=== PATIENT | female | born 2000 | race Caucasian/White ===

== ENCOUNTER 2019-08-13 23:27 | Outpatient (CLI) | payer MEDICAID ==
[~2019-08-13] VITALS: Ht 68 cm; Wt 92.1 kg
[2019-08-13 00:55] VITALS: BP 137/88
[2019-08-14 00:10] LABS: BILIRUBIN,URINE NEGATIVE (NEGATIVE); CLARITY,URINE SLIGHTLY CLOUDY; COLOR,URINE YELLOW; GLUCOSE, URINE (UA) NEGATIVE (NEGATIVE); KETONES,URINE NEGATIVE (NEGATIVE); LEUKOCYTE ESTERASE ,URINE 1+ (NEGATIVE); NITRITE,URINE NEGATIVE (NEGATIVE); PH,URINE 6 (5-9); PROTEIN,URINE 1+ (NEGATIVE); UROBILINOGEN,URINE 1 MG/DL (NORMAL)
[2019-08-14 00:20] LABS: BACTERIA,URINE MODERATE /HPF; CALCIUM OXALATE CRYSTALS,UR MODERATE /LPF; RBC,URINE 0-2 /HPF
--- NOTE | 2019-08-14 00:40 | NUR ---
REPORT RECEIVED AND CARES RESUMED BY THIS NURSE. REPORTED THAT PORTER CHRISTIE S presented to unit via from ED AT 2335, accompanied by S/O, with c/o CONTRACTIONS,PAIN. PORTER CHRISTIE S weighed, gowned, voided, and to bed. EFHM and TOCO applied, VS taken. PORTER CHRISTIE S oriented to bed controls, call light, TV, heat, and A/C controls.
--- NOTE | 2019-08-14 00:45 | NUR ---
DR THURSTON NOTIFIED OF UA RESULT. ORDERS RECEIVED FOR ANTIBIOTIC AND D/C TO HOME.
[2019-08-14 00:55] VITALS: BP 137/88
[2019-08-14] MEDS ORDERED: CEPHALEXIN 250 MG (KEFLEX) CAP PO ONE ×2 (01:00→01:10)
[2019-08-14] MEDS ORDERED: CEPH-507 PO (01:04)
[2019-08-14] MEDS ORDERED: FLU QUADRIvalent (5+ YOA) 2019-2020 (AFLURIA) 0.5 ML IM ONE ×2 (01:11→01:15)
--- NOTE | 2019-08-14 01:25 | NUR ---
KEFLEX 500MG PO ADMINISTERED. FLU SHOT ADMINISTERED PER PT REQUEST. DISCHARGE INSTRUCTIONS GIVEN. PT VERBALIZES UNDERSTANDING AND SIGNATURE OBTAINED. PT DENIES ANY QUESTIONS OR CONCERNS. EFM D/C'D AND PT ALLOWED TO DRESS. D/C'D OFF UNIT IN STABLE CONDITION ACCOMPANIED BY S/O.
== END 2019-08-14 01:30 | disposition home or self-care (01) ==
LOC: WSo 23:27 → LDRP 23:28 → WSo 08-14 01:30
PROVIDERS: ATTEND Obstetrics & Gynecology
DX: O62.8 Other abnormalities of forces of labor (principal); Z3A.20 20 weeks gestation of pregnancy
CPT/HCPCS: 81000; 87088; 90471; 99212

== ENCOUNTER 2019-08-18 11:55 | Outpatient (CLI) | payer MEDICAID ==
[~2019-08-18] VITALS: Ht 172.7 cm; Wt 93.7 kg
[~2019-08-18 11:55] MED LIST: CEPH-507 PO
--- NOTE | 2019-08-18 12:00 | NUR ---
PORTER CHRISTIE S presented to unit via amb from home, accompanied by s.o., with c/o CONTRACTIONS. PORTER CHRISTIE S weighed, gowned, voided, and to bed. EFHM and TOCO applied, VS taken. PORTER CHRISTIE S oriented to bed controls, call light, TV, heat, and A/C controls.
[2019-08-18] MEDS ORDERED: PREN1TAB79 PO (12:44)
[2019-08-18 13:07] VITALS: BP 121/81
--- NOTE | 2019-08-18 13:38 | NUR ---
Notified Dr Alcala of pt c/o of contractions every 5 minutes since 1899 last noc,passed mucus plug,and LL quad pain. Reported pt taking keflex for UTI, mild irregular contractions and spacing to occasional contraction with bed rest, baby active, a variable noted ,FHT's 135 and reactive, SVE 1cm, neg amnio swab obtained and neg on urine dipstick. Orders received for discharge and home care instructions.
[2019-08-18 14:00] VITALS: BP 121/81
--- NOTE | 2019-08-18 14:10 | NUR ---
PORTER CHRISTIE demonstrates understanding of discharge instructions and accurately returns instructions upon questioning. Copy of Post-Discharge Instructions and Medication Discharge Instructions given to pt. PORTER CHRISTIE is able to manage continuing needs after discharge. Patients belongings returned to pt. Skin dry and intact; no breakdown noted. Patient discharged from 3320-1 on at 1410. PORTER CHRISTIE left floor ambulatory, accompanied by Sig O. Pt will f/u with Dr Quiroga at previous scheduled appointment 08/21/19. No concerns voiced via pt at this time.
--- NOTE | 2019-08-20 08:34 | Physician Query-Final Dx ---
Clinic Account Progress/Dx Physician Query: Please give diagnosis Please include # weeks gestation Date of Service Aug 18, 2019 at 11:55 CHAPITO SANABRIA Aug 20, 2019 08:34
== END 2019-08-18 14:10 | disposition home or self-care (01) ==
LOC: LDRP 11:55 → WSo 11:55
PROVIDERS: ATTEND Obstetrics & Gynecology
DX: O62.8 Other abnormalities of forces of labor (principal); Z3A.39 39 weeks gestation of pregnancy
CPT/HCPCS: 99214

== ENCOUNTER 2019-08-22 06:36 | Inpatient (IN) | payer MEDICAID ==
[~2019-08-22] VITALS: Ht 172.7 cm; Wt 94.0 kg
[2019-08-22] VITALS (63 sets, daily range): BP systolic 92–141; BP diastolic 51–94
[~2019-08-22 06:36] MED LIST changes: +PREN1TAB79 PO
--- NOTE | 2019-08-22 06:45 | NUR ---
PORTER CHRISTIE S presented to unit via ambulation from home/ED, accompanied by SO & family, for INDUCTION. PORTER CHRISTIE S weighed, gowned, voided, and to bed. EFHM and TOCO applied, VS taken. PROTER CHRISTIE S oriented to bed controls, call light, TV, heat, and A/C controls.
[2019-08-22] MEDS ORDERED: D5 LR IV SOLUTION 1,000 ML IV SCH (06:58)
[2019-08-22] MEDS ORDERED: AMPICILLIN FOR IV USE 2,000 MG in WATER (STERILE) FOR INJECTION 14.8 ML IV SCH (06:58)
--- NOTE | 2019-08-22 07:04 | NUR ---
monitors applied by previous shift.
[2019-08-22 07:07] LABS: BASOPHILS % (AUTO) 0 % (0-10); EOSINOPHILS # (AUTO) 0.2 10^3/uL (0.0-0.3); EOSINOPHILS % (AUTO) 2 % (0-10); HEMATOCRIT 41 % (35-52); HEMOGLOBIN 14.1 G/DL (11.5-16.0); LYMPHOCYTES % (AUTO) 20 % (12-44); MEAN CORPUSCULAR HEMOGLOBIN 31 PG (25-34); MEAN CORPUSCULAR HGB CONC 34 G/DL (32-36); MEAN CORPUSCULAR VOLUME 90 FL (80-99); MEAN PLATELET VOLUME 10.7 FL (7.4-10.4); MONOCYTES # (AUTO) 0.9 X 10^3 (0.0-1.0); MONOCYTES % (AUTO) 9 % (0-12); NEUTROPHILS % (AUTO) 69 % (42-75); PLATELET COUNT 196 10^3/uL (130-400); RED CELL DISTRIBUTION WIDTH 13.4 % (10.0-14.5); WHITE BLOOD COUNT 10.2 10^3/uL (4.3-11.0)
[2019-08-22] MEDS ORDERED: OXYTOCIN/NORMAL SALINE 500 ML IV SCH ×2 (07:58→19:28)
--- NOTE | 2019-08-22 08:17 | History & Physical-OB ---
OB - Chief Complaint & HPI Date/Time Date of Admission: Date of Admission: Aug 22, 2019 at 06:36 Date seen by a Provider: Aug 22, 2019 Time Seen by a Provider: 08:00 Chief Complaint/History OB-Reason for Admission/Chief: Induction of Labor Hx : 1 Hx Para: 0 Expected Date of Delivery: Aug 20, 2019 Gestational Age in Weeks: 40 Gestational Age in Days: 2 Indication for induction: post dates Admission Nurse Assessment Rev: Yes History of Labs A pos Antibody neg RI RPR NR HBsAg NR HIV NR GC neg GBS pos Allergies and Home Medications Allergies Coded Allergies: No Known Drug Allergies (Unverified , 08/18/19) Home Medications Cephalexin 500 Mg Capsule, 500 MG PO QID Prescribed by: SARA ESTES on 08/14/19 0104 Vit W-Ca,Fe,FA(<1 mg) 1 Each Tablet, 1 EACH PO DAILY, (Reported) Patient Home Medication List Home Medication List Reviewed: Yes OB - History Hx of Present Care: Yes Ultrasounds: Normal mid trimester US Obstetrical Complications: None Medical Complications: None Patient Past Medical History n/a Social History/Family History 2nd Hand Smoke Exposure: No Immunizations Date of Influenza Vaccine: Aug 14, 2019 OB - Admission Exam Physical Exam HEENT: NCAT Heart: Rhythm Normal Lungs: Clear Abdomen: Gravid Extremities: Normal Reflexes: Normal Cervical Dilatation: 2cm Effacement: 75% Station: -1 Membranes: Intact Heart Rate: 130's Accelerations: Accelerations Present Decelerations: No Decelerations Short Term Variability: Present Detention Variability: Average (6-25) Contractions on Admission: 6-10 Minutes Apart Intensity: Mild Keller Scoring Tool (Modified) Dilation (cm): 1-2cm (1) Effacement (%): 51-79% (2) Descent/Station: -1,0 (2) Cervix Consistency: Soft (2) Cervix Position: Anterior (2) Keller Score: 8 Labs Laboratory Tests Test 08/22/19 06:50 Range/Units White Blood Count 10.2 4.3-11.0 10^3/uL Red Blood Count 4.56 4.35-5.85 10^6/uL Hemoglobin 14.1 11.5-16.0 G/DL Hematocrit 41 35-52 % Mean Corpuscular Volume 90 80-99 FL Mean Corpuscular Hemoglobin 31 25-34 PG Mean Corpuscular Hemoglobin Concent 34 32-36 G/DL Red Cell Distribution Width 13.4 10.0-14.5 % Platelet Count 196 130-400 10^3/uL Mean Platelet Volume 10.7 H 7.4-10.4 FL Neutrophils (%) (Auto) 69 42-75 % Lymphocytes (%) (Auto) 20 12-44 % Monocytes (%) (Auto) 9 0-12 % Eosinophils (%) (Auto) 2 0-10 % Basophils (%) (Auto) 0 0-10 % Neutrophils # (Auto) 7.0 1.8-7.8 X 10^3 Lymphocytes # (Auto) 2.0 1.0-4.0 X 10^3 Monocytes # (Auto) 0.9 0.0-1.0 X 10^3 Eosinophils # (Auto) 0.2 0.0-0.3 10^3/uL Basophils # (Auto) 0.0 0.0-0.1 10^3/uL OB - Assessment/Plan/Diagnosis Assessment Assessment: induction of labor Admission Dx 19 yo @ 40.2 Post dates GBS pos Admission Status: Inpatient Order (span 2 midnights) Reason for Inpatient Admission: Induction of labor at term Plan Plan: Induction Induction Method: per Pitocin Protocol POPPY THURSTON DO Aug 22, 2019 08:17
[2019-08-22] MEDS ORDERED: SUFENTA 0.6MCG/ML BUPIVA 0.125 100 ML ONE (10:23)
[2019-08-22] MEDS: LACTATED RINGERS 1,000 ML IV SCH ×2 (10:24→11:52)
--- NOTE | 2019-08-22 10:31 | NUR ---
was given update r/t epidural request.
--- NOTE | 2019-08-22 10:40 | NUR ---
anesthesia notified of pt's request for epidural placement.
--- NOTE | 2019-08-22 10:54 | NUR ---
APOORVA Rai and TORRES Onofre here for epidural placement. Procedure explained, consent reviewed and signed by anesthesia. Questions answered to patient's satisfaction. Time out taken to verify correct patient/procedure. 1102- Patient up to side of bed, assisted into sitting position. Betadine prep done x3 and sterile drape applied. 1114- Local done, see anesthesia record. 1127- Test dose given, see anesthesia record for drug and dosage. Epidural catheter secured in place. Epidural placement complete. 1134- Assisted back into bed, monitors adjusted. Epidural dosed, see anesthesia record. Epidural of Sufenta/Bupvicaine @12cc/hr stated per pump. Patient tolerated procedure well.
[2019-08-22] MEDS: EPIDURAL (SUFENTA 0.6MCG/ML BUPIVA 0.125%) 100 ML BAG EPI SCH ×3 (11:34→20:18)
[2019-08-22] MEDS ORDERED: NALOXONE 0.4 MG/ML 1 ML (NARCAN) VIAL IV PRN ×2 (11:45)
[2019-08-22] MEDS ORDERED: METOCLOPRAMIDE INJ 10 MG/2 ML (REGLAN) IV PRN (11:45)
[2019-08-22] MEDS ORDERED: ONDANSETRON 4 MG/2 ML (SDV) Z0FRAN IV PRN (11:45)
[2019-08-22] MEDS ORDERED: diphenhydrAMINE 50 MG/ML INJ (BENADRYL) IV PRN (11:45)
[2019-08-22] MEDS: AMPICILLIN FOR IV USE 1,000 MG in WATER (STERILE) FOR INJECTION 7.4 ML IV SCH ×2 (11:47→16:08)
[2019-08-22] MEDS ORDERED: CATHETER FLUSH 10 ML SYR IV SCH (14:00)
--- NOTE | 2019-08-22 18:28 | NUR ---
was called with KARLA.
[2019-08-22] MEDS ORDERED: LIDOCAINE/EPI 2% 1:200,00 (XYLOCAINE) 10 ML VIAL ONE (18:48)
--- NOTE | 2019-08-22 19:15 | NUR ---
1915-Start of recovery period. FF 2 below umbilicus, light rubra bleeding, no clots. Pericare, gown change, and epidural removed at this time. 0-FF 2 below umbilicus, light rubra bleeding, no clots. Mother holding . 1944-FF 2 below umbilicus, light rubra bleeding, no clots. Mother nursing infant. 1999-FF 2 below umbilicus, light rubra bleeding, no clots. 2014-FF 2 below umbilicus, light rubra bleeding, no clots. 2044-FF 2 below umbilicus, light rubra bleeding, no clots. Pericare performed and gown changed. 2114-FF 2 below umbilicus, light rubra bleeding, no clots. End of recovery period.
[2019-08-22] MEDS ORDERED: WITCH HAZEL(TUCKS) 40 EA JAR TOP PRN (19:30)
[2019-08-22] MEDS ORDERED: BENZOCAINE/MENTHOL (DERMOPLAST) 56 ML CAN TP PRN (19:30)
[2019-08-22] MEDS ORDERED: IBUPROFEN 600 MG (MOTRIN) TAB PO ONE (20:41)
[2019-08-22] MEDS: IBUPROFEN 600 MG (MOTRIN) TAB PO SCH (20:45)
[2019-08-22] MEDS: DOCUSATE SODIUM 100 MG (COLACE) CAP PO SCH (20:46)
--- NOTE | 2019-08-22 21:59 | OB Labor & Delivery Record ---
L&D History Date of Service Date of Service: Aug 22, 2019 History Expected Date of Delivery: Aug 20, 2019 Gestational Age in Weeks: 40 Hx : 1 Hx Para: 0 Complications Events: Meconium Stained Fluid, Routine care Operative Indications (Cesarea: N/A-Vaginal Delivery Intrapartal Events: None L&D Stage1 Stage One Onset of Labor - Date: Aug 22, 2019 Monitors and Tracing Monitor Mode: Internal Heart Rate: 120 Monitor Accelerations: Uniform Monitor Decelerations: Variable Station: +1 Passenger Service Supervisor Variability: Average (6-10) Short Term Variability: Present Presentation: Vertex Vital Signs VS - Last 72 Hours, by Label 08/22/19 08/22/19 08/22/19 08/22/19 07:30 08:00 08:20 08:30 Temp 36.2 Pulse 110 80 82 83 Resp 20 20 18 18 B/P (MAP) 120/72 (88) 127/86 (100) 126/80 (95) 116/77 (90) Pulse Ox 99 O2 Delivery Room Air Room Air Room Air Room Air 08/22/19 08/22/19 08/22/19 08/22/19 08:45 08:55 09:00 09:15 Temp 36.2 Pulse 76 110 78 78 Resp 18 20 18 18 B/P (MAP) 123/71 (88) 120/80 (93) 116/82 (93) Pulse Ox 99 O2 Delivery Room Air Room Air Room Air Room Air 08/22/19 08/22/19 08/22/19 08/22/19 09:30 09:45 10:00 10:15 Pulse 75 83 82 88 Resp 18 18 18 18 B/P (MAP) 127/80 (96) 137/92 (107) 130/87 (101) 130/83 (99) O2 Delivery Room Air Room Air Room Air Room Air 08/22/19 08/22/19 08/22/19 08/22/19 10:30 10:45 11:00 11:05 Pulse 83 83 Resp 18 18 18 20 B/P (MAP) 134/94 (107) 126/83 (97) Pulse Ox 99 100 O2 Delivery Room Air Room Air Room Air Room Air 08/22/19 08/22/19 08/22/19 08/22/19 11:05 11:15 11:20 11:25 Temp 36.5 Pulse 88 83 82 87 Resp 20 18 20 20 B/P (MAP) 135/91 (106) 134/94 (107) 128/83 (98) 128/82 (97) Pulse Ox 100 99 100 100 O2 Delivery Room Air Room Air Room Air Room Air 08/22/19 08/22/19 08/22/19 08/22/19 11:30 11:35 11:37 11:40 Pulse 84 81 77 88 Resp 20 20 18 18 B/P (MAP) 136/94 (108) 136/79 (98) 127/80 (96) 119/73 (88) Pulse Ox 100 100 99 O2 Delivery Room Air Room Air Room Air Room Air 08/22/19 08/22/19 08/22/19 08/22/19 11:45 11:53 11:55 12:00 Pulse 86 62 61 67 Resp 20 18 18 20 B/P (MAP) 111/66 (81) 92/51 (65) 94/53 (67) 109/68 (82) Pulse Ox 100 100 100 94 O2 Delivery Room Air Room Air Room Air Room Air 08/22/19 08/22/19 08/22/19 08/22/19 12:15 12:30 12:45 13:00 Pulse 84 71 76 86 Resp 20 20 20 20 B/P (MAP) 113/73 (86) 105/70 (82) 105/70 (82) 111/77 (88) Pulse Ox 99 98 98 100 O2 Delivery Room Air Room Air Room Air Room Air 08/22/19 08/22/19 08/22/19 08/22/19 13:15 13:30 13:45 14:00 Pulse 75 79 83 85 Resp 20 20 20 20 B/P (MAP) 109/76 (87) 102/70 (81) 107/67 (80) 116/72 (87) Pulse Ox 100 100 100 99 O2 Delivery Room Air Room Air Room Air Room Air 08/22/19 08/22/19 08/22/19 08/22/19 14:15 14:30 14:45 15:00 Temp 36.1 Pulse 83 83 93 85 Resp 20 18 18 18 B/P (MAP) 107/75 (86) 121/81 (94) 123/86 (98) 111/73 (86) Pulse Ox 100 100 99 99 O2 Delivery Room Air Room Air Room Air Room Air 08/22/19 08/22/19 08/22/19 08/22/19 15:15 15:30 15:45 16:00 Pulse 82 82 74 82 Resp 18 18 18 18 B/P (MAP) 109/77 (88) 103/73 (83) 111/73 (86) 113/78 (90) Pulse Ox 98 99 99 99 O2 Delivery Room Air Room Air Room Air Room Air 08/22/19 08/22/19 08/22/19 08/22/19 16:15 16:30 16:45 17:00 Pulse 82 85 88 90 Resp 18 18 18 18 B/P (MAP) 122/80 (94) 118/75 (89) 120/81 (94) 124/82 (96) Pulse Ox 98 100 100 100 O2 Delivery Room Air Room Air Room Air Room Air 08/22/19 08/22/19 08/22/19 08/22/19 17:15 17:30 17:45 17:53 Temp 36.5 36.4 Pulse 91 85 96 Resp 18 18 18 B/P (MAP) 120/76 (91) 110/72 (85) 118/82 (94) Pulse Ox 100 99 99 O2 Delivery Room Air Room Air Room Air 08/22/19 08/22/19 08/22/19 08/22/19 18:00 18:15 18:30 18:45 Pulse 86 91 91 96 Resp 18 18 18 18 B/P (MAP) 131/83 (99) 108/65 (79) 108/65 (79) 130/76 (94) Pulse Ox 100 99 99 100 O2 Delivery Room Air Room Air Room Air Room Air 08/22/19 19:00 Pulse 104 Resp 18 B/P (MAP) 134/73 (93) O2 Delivery Room Air Rupture of Membranes Spontaneous Ruture of Membrane: No Amniotic Membrane Rupture Time: 1205 Amniotic Membrane Fluid Desc.: Meconium Stained Vaginal Bleeding Description: Normal Show Induction/Anesthesia Epidural Cath Placement - Time: 1124 Progress/Notes Patient started on Ampicillin at admission this am at 630 due to GBS + and started on Pitocin augmentation, AROM perform later that morning approx 1135 am. This was after epidural placed. She progressed to complete and +2 station. L&D Stage2 Stage Two Stage II Date: Aug 22, 2019 Monitors and Tracing Monitor Mode: External Heart Rate: 120 Monitor Accelerations: Uniform Monitor Decelerations: Variable Shelter Variability: Average (6-10) Short Term Variability: Present Position: Right Occiput Anterior Presentation: Vertex Cord Descript/Complications Cord Vessel Description: 3 Vessels Delivery Type Delivery Method: Spontaneous Vaginal Anterior Shoulder: Right Episiotomy/Perineal Laceration Laceraction(s)/Extensions: Yes Episiotomy Description: Midline Degree (describe repair) midline episiotomy repaired using 3-0 and 2-0 vicryl suture in usual fashion Condition of Delivery 1 minute Comment: 8 5 minute Comment: 9 Notes Live male weight 7lbs 12 oz Condition of Infant Condition of Infant: Living Exam: No Observed Abnormalities Resuscitation Resuscitation: N/A - Spontaneous Resp L&D Stage3 Pictocin Pitocin Administration mu/min: 10 Pitocin ml/hr: 10 Pitocin Administration Comment: 30 mu wide open at delivery of placenta Placenta Delivery Placenta Delivery: Spontaneous Delivery Summary Summary Estimated blood loss (mL): 350 Attending at delivery: Niki Thurston DO Condition of Delivery Examined: Cervix Examined, Uterus Explored Post Hemorrhage: No Condition of Mother stable Condition of (s) stable NIKI THURSTON DO Aug 22, 2019 21:59
[2019-08-22] MEDS ORDERED: HYDROcodone/APAP 5 MG/325 MG (LORTAB) TAB PO PRN (22:00)
--- NOTE | 2019-08-22 22:00 | NUR ---
Left leg still too numb for pt. to ambulate with standby assist, but able to bear weight on right leg. Pt. assisted to wheelchair to go to bathroom. Positive void noted. Will transfer to stephen, 312 soon.
--- NOTE | 2019-08-22 22:20 | NUR ---
Pt. transferred to room 312 via wheelchair, accompanied by S.O. and . Pt. oriented to room, call light, and thermostat. folder given and explained. Fresh ice water provided. Pt. instructed to call RN when ready to get up to bathroom again. No other questions or concerns voiced at this time.
[2019-08-23 00:40] VITALS: BP 117/82
--- NOTE | 2019-08-23 00:50 | NUR ---
Pt. able to ambulate to bathroom with standby assist without difficulty. Positive void noted.
[2019-08-23] MEDS: IBUPROFEN 600 MG (MOTRIN) TAB PO SCH ×4 (03:27→21:37)
[2019-08-23 03:30] VITALS: BP 104/61
[2019-08-23 06:32] LABS: BASOPHILS % (AUTO) 0 % (0-10); EOSINOPHILS # (AUTO) 0.1 10^3/uL (0.0-0.3); EOSINOPHILS % (AUTO) 1 % (0-10); HEMATOCRIT 34 % (35-52); HEMOGLOBIN 11.5 G/DL (11.5-16.0); LYMPHOCYTES # (AUTO) 1.6 X 10^3 (1.0-4.0); LYMPHOCYTES % (AUTO) 10 % (12-44); MEAN CORPUSCULAR HEMOGLOBIN 31 PG (25-34); MEAN CORPUSCULAR HGB CONC 34 G/DL (32-36); MEAN CORPUSCULAR VOLUME 92 FL (80-99); MEAN PLATELET VOLUME 10.4 FL (7.4-10.4); MONOCYTES # (AUTO) 1.8 X 10^3 (0.0-1.0); MONOCYTES % (AUTO) 11 % (0-12); NEUTROPHILS # (AUTO) 12.3 X 10^3 (1.8-7.8); NEUTROPHILS % (AUTO) 78 % (42-75); PLATELET COUNT 175 10^3/uL (130-400); RED CELL DISTRIBUTION WIDTH 13.6 % (10.0-14.5); WHITE BLOOD COUNT 15.8 10^3/uL (4.3-11.0)
--- NOTE | 2019-08-23 07:33 | Anesthesia-Regional Post-Op ---
Regional Patient Condition Mental Status: Alert, Oriented x3 Circulation: Same as Pre-Op Headache: Absent Sensation: Full Recovery Motor Block: Absent Post Op Complications Complications None Follow Up Care/Instructions Patient Instructions None needed. Anesthesia/Patient Condition Patient is doing well, no complaints, stable vital signs, no apparent adverse anesthesia problems. No complications reported per nursing. MINH ANDRADE CRNA Aug 23, 2019 07:33
--- NOTE | 2019-08-23 08:26 | Postpartum Progress Note ---
Note Note Day # 1 Subjective: Patient is without complaints. Ambulating, voiding. Tolerating a regular diet without nausea or vomiting. Normal lochia. Pain is well controlled with oral pain medications. Objective: Physical Exam: General - Alert and oriented, no apparent distress Abdomen - Soft, appropriately tender to palpation, non-distended, fundus firm at umbilicus Extremities - no edema, negative Danette's bilaterally Assessment: PPD 1 NVD Plan: Routine care. Encourage breast feeding. Encourage ambulation. Ferrous sulfate supplementation. Plan for discharge tomorrow Vitals - Labs Vital Signs - I&O Vital Signs Date Time Temp Pulse Resp B/P (MAP) Pulse Ox O2 Delivery O2 Flow Rate FiO2 08/23/19 03:30 36.7 76 16 104/61 (75) 98 Room Air 08/23/19 00:40 36.8 92 18 117/82 (94) 98 Room Air 08/22/19 21:30 96 18 124/73 (90) Room Air 08/22/19 21:15 90 18 118/75 (89) Room Air 08/22/19 21:00 105 18 122/81 (95) Room Air 08/22/19 20:44 93 18 118/81 (93) Room Air 08/22/19 20:30 87 18 117/82 (94) Room Air 08/22/19 20:00 93 18 130/83 (99) Room Air 08/22/19 19:44 96 18 129/75 (93) Room Air 08/22/19 19:29 105 18 141/74 (96) Room Air 08/22/19 19:22 37.0 97 18 134/72 (92) Room Air 08/22/19 19:14 106 18 130/74 (92) Room Air 08/22/19 19:00 104 18 134/73 (93) Room Air 08/22/19 18:45 96 18 130/76 (94) 100 Room Air 08/22/19 18:30 91 18 108/65 (79) 99 Room Air 08/22/19 18:15 91 18 108/65 (79) 99 Room Air 08/22/19 18:00 86 18 131/83 (99) 100 Room Air 08/22/19 17:53 36.4 08/22/19 17:45 96 18 118/82 (94) 99 Room Air 08/22/19 17:30 85 18 110/72 (85) 99 Room Air 08/22/19 17:15 36.5 91 18 120/76 (91) 100 Room Air 08/22/19 17:00 90 18 124/82 (96) 100 Room Air 08/22/19 16:45 88 18 120/81 (94) 100 Room Air 08/22/19 16:30 85 18 118/75 (89) 100 Room Air 08/22/19 16:15 82 18 122/80 (94) 98 Room Air 08/22/19 16:00 82 18 113/78 (90) 99 Room Air 08/22/19 15:45 74 18 111/73 (86) 99 Room Air 08/22/19 15:30 82 18 103/73 (83) 99 Room Air 08/22/19 15:15 82 18 109/77 (88) 98 Room Air 08/22/19 15:00 85 18 111/73 (86) 99 Room Air 08/22/19 14:45 36.1 93 18 123/86 (98) 99 Room Air 08/22/19 14:30 83 18 121/81 (94) 100 Room Air 08/22/19 14:15 83 20 107/75 (86) 100 Room Air 08/22/19 14:00 85 20 116/72 (87) 99 Room Air 08/22/19 13:45 83 20 107/67 (80) 100 Room Air 08/22/19 13:30 79 20 102/70 (81) 100 Room Air 08/22/19 13:15 75 20 109/76 (87) 100 Room Air 08/22/19 13:00 86 20 111/77 (88) 100 Room Air 08/22/19 12:45 76 20 105/70 (82) 98 Room Air 08/22/19 12:30 71 20 105/70 (82) 98 Room Air 08/22/19 12:15 84 20 113/73 (86) 99 Room Air 08/22/19 12:00 67 20 109/68 (82) 94 Room Air 08/22/19 11:55 61 18 94/53 (67) 100 Room Air 08/22/19 11:53 62 18 92/51 (65) 100 Room Air 08/22/19 11:45 86 20 111/66 (81) 100 Room Air 08/22/19 11:40 88 18 119/73 (88) 99 Room Air 08/22/19 11:37 77 18 127/80 (96) Room Air 08/22/19 11:35 81 20 136/79 (98) 100 Room Air 08/22/19 11:30 84 20 136/94 (108) 100 Room Air 08/22/19 11:25 36.5 87 20 128/82 (97) 100 Room Air 08/22/19 11:20 82 20 128/83 (98) 100 Room Air 08/22/19 11:15 83 18 134/94 (107) 99 Room Air 08/22/19 11:05 88 20 135/91 (106) 100 Room Air 08/22/19 11:05 83 20 126/83 (97) 100 Room Air 08/22/19 11:00 83 18 134/94 (107) 99 Room Air 08/22/19 10:45 18 Room Air 08/22/19 10:30 18 Room Air 08/22/19 10:15 88 18 130/83 (99) Room Air 08/22/19 10:00 82 18 130/87 (101) Room Air 08/22/19 09:45 83 18 137/92 (107) Room Air 08/22/19 09:30 75 18 127/80 (96) Room Air 08/22/19 09:15 78 18 116/82 (93) Room Air 08/22/19 09:00 78 18 120/80 (93) Room Air 08/22/19 08:55 36.2 110 20 99 Room Air 08/22/19 08:45 76 18 123/71 (88) Room Air 08/22/19 08:30 83 18 116/77 (90) Room Air I & O 08/23/19 07:00 Intake Total 500 ml Balance 500 ml Labs Laboratory Tests 08/23/19 06:20: White Blood Count 15.8H, Red Blood Count 3.74L, Hemoglobin 11.5, Hematocrit 34L, Mean Corpuscular Volume 92, Mean Corpuscular Hemoglobin 31, Mean Corpuscular Hemoglobin Concent 34, Red Cell Distribution Width 13.6, Platelet Count 175, Mean Platelet Volume 10.4, Neutrophils (%) (Auto) 78H, Lymphocytes (%) (Auto) 10L, Monocytes (%) (Auto) 11, Eosinophils (%) (Auto) 1, Basophils (%) (Auto) 0, Neutrophils # (Auto) 12.3H, Lymphocytes # (Auto) 1.6, Monocytes # (Auto) 1.8H, Eosinophils # (Auto) 0.1, Basophils # (Auto) 0.0 POPPY THURSTON DO Aug 23, 2019 8:26 am
[2019-08-23 09:15] VITALS: BP 116/78
[2019-08-23] MEDS: DOCUSATE SODIUM 100 MG (COLACE) CAP PO SCH ×2 (09:19→21:37)
[2019-08-23] MEDS: PRENATAL VITAMIN 1 EA TAB PO SCH (09:19)
[2019-08-23 12:45] VITALS: BP 124/81
[2019-08-23 15:45] VITALS: BP 133/91
--- NOTE | 2019-08-23 15:45 | NUR ---
Pt concerned with episiotomy - examined WNL. Reassured patient.
[2019-08-23] MEDS ORDERED: BISACODYL 5 MG (DULCOLAX) TABLET PO PRN (16:45)
--- NOTE | 2019-08-23 19:00 | NUR ---
Pt tearful. supportive, pt reassured.
[2019-08-23 21:35] VITALS: BP 97/63
[2019-08-24 03:35] VITALS: BP 99/62
[2019-08-24] MEDS: IBUPROFEN 600 MG (MOTRIN) TAB PO SCH ×2 (03:38→09:52)
[2019-08-24] MEDS ORDERED: ACHD5005 PO (08:14)
[2019-08-24] MEDS ORDERED: DOCU100C37 PO (08:14)
[2019-08-24] MEDS ORDERED: Benzocaine/Menthol TP (08:14)
[2019-08-24] MEDS ORDERED: IBUP-844 PO (08:14)
--- NOTE | 2019-08-24 08:15 | NUR ---
DR. THURSTON IN TO SEE PT. PLAN FOR DISCHARGE.
--- NOTE | 2019-08-24 08:15 | Discharge Inst-Women's Service ---
Discharge Inst-Women's Serv Depart Medication/Instructions New, Converted or Re-Newed RX: RX on Chart Final Diagnosis PPD 2 NVD Problems Reviewed?: Yes Consults/Follow Up Additional Follow Up: Yes Orders/Referrals Dr. Thurston in 6 weeks Activity Activity: Activity as Tolerated Driving Instructions: No Driving for 1 Week NO SMOKING: NO SMOKING Nothing Inside Vagina: No Douching, No [place], No Tampons Diet Discharge Diet: No Restrictions Symptoms to Report to : Bleeding Excessive, Pain Increased, Fever Over 101 Degrees F, Vaginal Bleeding Increase, Questions/Concerns For Any Problems or Questions: Contact Your Physician POPPY THURSTON DO Aug 24, 2019 08:15
--- NOTE | 2019-08-24 08:33 | Postpartum Progress Note ---
Note Note Day # 2 Subjective: Patient is without complaints. Ambulating, voiding. Tolerating a regular diet without nausea or vomiting. Normal lochia. Pain is well controlled with oral pain medications. Objective: Physical Exam: General - Alert and oriented, no apparent distress Abdomen - Soft, appropriately tender to palpation, non-distended, fundus firm at umbilicus Extremities - no edema, negative Danette's bilaterally Assessment: PPD 1 NVD Plan: Routine care. Encourage breast feeding. Encourage ambulation. Ferrous sulfate supplementation. Plan for discharge today Vitals - Labs Vital Signs - I&O Vital Signs Date Time Temp Pulse Resp B/P (MAP) Pulse Ox O2 Delivery O2 Flow Rate FiO2 08/24/19 03:35 36.7 63 16 99/62 (74) 98 Room Air 08/23/19 21:35 36.5 91 16 97/63 (74) 97 Room Air 08/23/19 15:45 37.4 84 16 133/91 (105) 96 Room Air 08/23/19 12:45 36.9 77 16 124/81 (95) 95 08/23/19 09:15 36.9 89 16 116/78 (91) 97 Room Air POPPY THURSTON DO Aug 24, 2019 08:33
[2019-08-24 09:00] VITALS: BP 115/77
--- NOTE | 2019-08-24 09:00 | NUR ---
A.M. ASSESSMENT COMPLETED. VSS. PLANNING TO GO HOME TODAY.
[2019-08-24] MEDS: DOCUSATE SODIUM 100 MG (COLACE) CAP PO SCH (09:52)
[2019-08-24] MEDS: PRENATAL VITAMIN 1 EA TAB PO SCH (09:55)
--- NOTE | 2019-08-24 10:30 | NUR ---
CARING FOR INFANT IN ROOM. GOOD INTERACTION NOTED. WELL.
--- NOTE | 2019-08-24 11:55 | NUR ---
DISCHARGE INSTRUCTIONS REVIEWED WITH COPY TO PT. STATES UNDERSTANDING OF ALL INSTRUCTIONS AND NEED TO F/U SCHEDULED AND NEEDED.
[2019-08-24 14:25] VITALS: BP 115/77
--- NOTE | 2019-08-24 14:25 | NUR ---
DISMISSED AMB FROM [facility] WITH IN STABLE CONDITION TO [facility] BY MANSOOR JACKSON.
== END 2019-08-24 14:25 | disposition home or self-care (01) | DRG 807 ==
LOC: LDRP 06:36
PROVIDERS: ADMIT Obstetrics & Gynecology; ATTEND Obstetrics & Gynecology
PROC: 10E0XZZ Delivery of Products of Conception, External Approach (ICD-10-PCS; principal; 2019-08-22)
PROC: 0W8NXZZ Division of Female Perineum, External Approach (ICD-10-PCS; 2019-08-22)
PROC: 3E033VJ Introduction of Other Hormone into Peripheral Vein, Percutaneous Approach (ICD-10-PCS; 2019-08-22)
DX: O48.0 Post-term pregnancy (principal); O99.824 Streptococcus B carrier state complicating childbirth; O77.0 Labor and delivery complicated by meconium in amniotic fluid; Z3A.40 40 weeks gestation of pregnancy; Z37.0 Single live birth; Z87.891 Personal history of nicotine dependence
CPT/HCPCS: 36415; 85025; 86850; 86900; 86901

== ENCOUNTER 2021-06-11 15:07 | Day surgery (SDC) | payer BC, MEDICAID ==
[~2021-06-11] VITALS: Ht 172 cm; Wt 72.0 kg
[~2021-06-11 15:07] MED LIST changes: +ACHD5005 PO; +Benzocaine/Menthol TP; +DOCU100C37 PO; +IBUP-844 PO
[2021-06-11] MEDS ORDERED: LACTATED RINGERS 1,000 ML IV SCH (15:45)
[2021-06-11] MEDS ORDERED: ONDANSETRON 4 MG/2 ML (SDV) Z0FRAN IVP ONE (15:45)
[2021-06-11] MEDS ORDERED: morphine INJ 10 MG/ML 1ML (SYR OR VIAL) IVP ONE ×2 (15:45→19:15)
[2021-06-11 15:56] LABS: ALBUMIN 4.5 GM/DL (3.2-4.5); POTASSIUM 3.7 MMOL/L (3.6-5.0)
[2021-06-11 15:58] LABS: CALCIUM 9.3 MG/DL (8.5-10.1)
[2021-06-11 15:59] LABS: TOTAL PROTEIN 7.7 GM/DL (6.4-8.2)
--- NOTE | 2021-06-11 15:59 | ED Abdominal Pain ---
General Chief Complaint: Abdominal/GI Problems Stated Complaint: POSS APENDICITIS - FROM [facility] Nursing Triage Note: Pt here with right side abdominal pain; onset this morning upon waking. Went to [facility] but they sent here here. Denies vomiting; last oral intake around noon. Source of Information: Patient Exam Limitations: No Limitations NPO Since: 1200 History of Present Illness Date Seen by Provider: Jun 11, 2021 Time Seen by Provider: 15:25 Initial Comments 20-year-old female otherwise healthy coming in due to right lower quadrant pain that started insidiously this morning when she woke up. Pain has been increasing, is now sharp in her right lower quadrant and stays there. Associated nausea but no vomiting. Ate something at noon which felt okay. Had a bowel movement this morning with no change. No fever that she knows of. She is never had pain like this before. LMP was 4 days ago. Nothing seems to make the pain better. She has never had abdominal surgery before. Allergies and Home Medications Allergies Coded Allergies: No Known Drug Allergies (Unverified , 08/18/19) Home Medications Cephalexin 500 Mg Capsule, 500 MG PO QID Prescribed by: SARA ESTES on 08/14/19103 Docusate Sodium 100 Mg Capsule, 100 MG PO BID PRN for CONSTIPATION-1ST LINE Prescribed by: POPPY THURSTON on 08/24/19813 Hydrocodone Bit/Acetaminophen 1 Tab Tab, 1 TAB PO Q4H PRN for PAIN-MODERATE Prescribed by: POPPY THURSTON on 08/24/19813 Ibuprofen 600 Mg Tablet, 600 MG PO Q6HR Prescribed by: POPPY THURSTON on 08/24/19813 Vit W-Ca,Fe,FA(<1 mg) 1 Each Tablet, 1 EACH PO DAILY, (Reported) [Benzocaine/Menthol] 56 ML AEROSOL, 56 ML TP UD PRN for PAIN- SEE INSTRUCTIONS EXTERNAL USE ONLY Prescribed by: POPPY THURSTON on 08/24/19813 Patient Home Medication List Home Medication List Reviewed: Yes Review of Systems Review of Systems Constitutional: No fever EENTM: No Blurred Vision Respiratory: Denies Cough, Denies Shortness of Air Cardiovascular: Denies Chest Pain Gastrointestinal: Abdominal Pain, Nausea Genitourinary: Denies Frequency Musculoskeletal: No back pain Skin: No rash Psychiatric/Neurological: Denies Anxiety, Denies Depressed Endocrine: No Symptoms Reported Hematologic/Lymphatic: No Symptoms Reported All Other Systems Reviewed Negative Unless Noted: Yes Past Byapdsm-Atovxd-Opoqdz Hx Patient Social History Tobacco Use?: Yes Tobacco type used: Cigarettes Smoking Status: Current Everyday Smoker Substance use?: No Alcohol Use?: No Pt feels they are or have been: No Seasonal Allergies Seasonal Allergies: No Past Medical History Surgeries: Yes Respiratory: No Cardiac: No Neurological: No Last Menstrual Period: Jun 07, 2021 Genitourinary: No Gastrointestinal: No Musculoskeletal: No Endocrine: No HEENT: No Cancer: No Psychosocial: No Integumentary: No Blood Disorders: Yes (ANEMIA) Family Medical History Patient reports no known family medical history. Physical Exam Vital Signs Vital Signs - First Documented 06/11/21 15:25 Temp 37.4 Pulse 88 Resp 18 B/P (MAP) 114/79 (91) Pulse Ox 100 O2 Delivery Room Air Capillary Refill : Less Than 3 Seconds Height/Weight/BMI Height: '" Weight: lbs. oz. kg; 24.00 BMI Method: General Appearance: WD/WN, no apparent distress HEENT: PERRL/EOMI, normal ENT inspection, pharynx normal Neck: non-tender, full range of motion, supple Respiratory: chest non-tender, lungs clear, normal breath sounds, no respiratory distress Cardiovascular: regular rate, rhythm, no murmur Gastrointestinal: normal bowel sounds, soft; No distended, No guarding, No rebound; tenderness Extremities: normal range of motion, non-tender, normal inspection, no pedal edema, no calf tenderness Back: normal inspection Neurologic/Psychiatric: no motor/sensory deficits, alert, normal mood/affect Skin: normal color, warm/dry Lymphatic: no adenopathy Progress/Results/Core Measures Results/Orders Lab Results Laboratory Tests Test 06/11/21 15:37 06/11/21 15:54 Range/Units White Blood Count 16.1 H 4.3-11.0 10^3/uL Red Blood Count 4.53 3.80-5.11 10^6/uL Hemoglobin 12.1 11.5-16.0 g/dL Hematocrit 39 35-52 % Mean Corpuscular Volume 85 80-99 fL Mean Corpuscular Hemoglobin 27 25-34 pg Mean Corpuscular Hemoglobin Concent 31 L 32-36 g/dL Red Cell Distribution Width 14.1 10.0-14.5 % Platelet Count 369 130-400 10^3/uL Mean Platelet Volume 10.3 9.0-12.2 fL Immature Granulocyte % (Auto) 2 % Neutrophils (%) (Auto) 82 H 42-75 % Lymphocytes (%) (Auto) 9 L 12-44 % Monocytes (%) (Auto) 7 0-12 % Eosinophils (%) (Auto) 0 0-10 % Basophils (%) (Auto) 0 0-10 % Neutrophils # (Auto) 13.2 H 1.8-7.8 10^3/uL Lymphocytes # (Auto) 1.4 1.0-4.0 10^3/uL Monocytes # (Auto) 1.1 H 0.0-1.0 10^3/uL Eosinophils # (Auto) 0.1 0.0-0.3 10^3/uL Basophils # (Auto) 0.1 0.0-0.1 10^3/uL Immature Granulocyte # (Auto) 0.3 H 0.0-0.1 10^3/uL Neutrophils % (Manual) 83 % Lymphocytes % (Manual) 12 % Monocytes % (Manual) 4 % Eosinophils % (Manual) 1 % Basophils % (Manual) 0 % Band Neutrophils 0 % Blood Morphology Comment NORMAL Sodium Level 143 135-145 MMOL/L Potassium Level 3.7 3.6-5.0 MMOL/L Chloride Level 107 98-107 MMOL/L Carbon Dioxide Level 25 21-32 MMOL/L Anion Gap 11 5-14 MMOL/L Blood Urea Nitrogen 10 7-18 MG/DL Creatinine 0.83 0.60-1.30 MG/DL Estimat Glomerular Filtration Rate 87 BUN/Creatinine Ratio 12 Glucose Level 84 70-105 MG/DL Calcium Level 9.3 8.5-10.1 MG/DL Corrected Calcium 8.9 8.5-10.1 MG/DL Total Bilirubin 0.7 0.1-1.0 MG/DL Aspartate Amino Transf (AST/SGOT) 24 5-34 U/L Alanine Aminotransferase (ALT/SGPT) 22 0-55 U/L Alkaline Phosphatase 48 40-136 U/L Total Protein 7.7 6.4-8.2 GM/DL Albumin 4.5 3.2-4.5 GM/DL Lipase 16 8-78 U/L Urine Color YELLOW Urine Clarity CLEAR Urine pH 6.5 5-9 Urine Specific [place] 1.020 1.016-1.022 Urine Protein NEGATIVE NEGATIVE Urine Glucose (UA) NEGATIVE NEGATIVE Urine Ketones NEGATIVE NEGATIVE Urine Nitrite NEGATIVE NEGATIVE Urine Bilirubin NEGATIVE NEGATIVE Urine Urobilinogen 1.0 < = 1.0 MG/DL Urine Leukocyte Esterase NEGATIVE NEGATIVE Urine RBC (Auto) NEGATIVE NEGATIVE Urine RBC NONE /HPF Urine WBC RARE /HPF Urine Squamous Epithelial Cells 2-5 /HPF Urine Crystals NONE /LPF Urine Bacteria TRACE /HPF Urine Casts NONE /LPF Urine Mucus SMALL H /LPF Urine Culture Indicated NO My Orders Orders - BELEN DE SANTIAGO MD Morphine Injection (Morphine Injection (06/11/21 15:45) Comprehensive Metabolic Panel (06/11/21 15:31) Lipase (06/11/21 15:31) Ua Culture If Indicated (06/11/21 15:31) Urine Bedside (06/11/21 15:31) Ed Iv/Invasive Line Start (06/11/21 15:31) Cbc With Automated Diff (06/11/21 15:31) Ct Abd/Pelv W (Appendicitis) (06/11/21 15:31) Ondansetron Injection (Zofran Injectio (06/11/21 15:45) Lactated Ringers (Lr 1000 Ml Iv Solution (06/11/21 15:45) Manual Differential (06/11/21 15:37) Iohexol Injection (Omnipaque 350 Mg/Ml 1 (06/11/21 16:15) Received Contrast (Hold Metformin- Contr (06/11/21 16:15) Ns (Ivpb) (Sodium Chloride 0.9% Ivpb Bag (06/11/21 16:15) Morphine Injection (Morphine Injection (06/11/21 17:15) Medications Given in ED Current Medications Medications Dose Ordered Sig/Devaughn Route Start Time Stop Time Status Last Admin Dose Admin Iohexol 100 ml ONCE ONCE IV 06/11/21 16:15 06/11/21 16:16 DC 06/11/21 16:44 80 ML Morphine Sulfate 4 mg ONCE ONCE IVP 06/11/21 15:45 06/11/21 15:46 DC 06/11/21 16:11 4 MG Ondansetron HCl 4 mg ONCE ONCE IVP 06/11/21 15:45 06/11/21 15:46 DC 06/11/21 16:09 4 MG Sodium Chloride 100 ml ONCE ONCE IV 06/11/21 16:15 06/11/21 16:16 DC 06/11/21 16:45 80 ML Vital Signs/I&O 06/11/21 15:25 Temp 37.4 Pulse 88 Resp 18 B/P (MAP) 114/79 (91) Pulse Ox 100 O2 Delivery Room Air Blood Pressure Mean: 91 Progress Progress Note : Progress Note 20-year-old female with above history coming in due to right lower quadrant abdominal pain. ABCs intact and vitals were stable on presentation. Physical exam with right lower quadrant tenderness but no signs of peritonitis. Differential includes appendicitis versus ectopic versus less likely PID versus some other etiology. An IV was placed and she was given morphine for pain control, Zofran for nausea, and a bolus of IV fluids while awaiting labs and test. CT scan of the abdomen and pelvis will be ordered. CT concerning for appendicitis. I called Dr. Armas the surgeon on-call who will be taking her to the operating theater and admitting the patient to their service for further evaluation and management. She did receive 2 doses of IV morphine after repeat reassessment for pain control. Diagnostic Imaging Diagonstic Imaging: CT Plain Films/CT/US/NM/MRI: abdomen Comments [facility], [place] NAME: PORTER CHRISTIE [facility] REC#: [id number] PT STATUS: REG ER : 2000 PHYSICIAN: BELEN DE SANTIAGO MD ADMIT DATE: 06/11/21/ER Signed Date of Exam:06/11/21 CT ABD/PELV W (APPENDICITIS) EXAMINATION: CT abdomen and pelvis with intravenous contrast. TECHNIQUE: Multiple contiguous axial images were obtained through the abdomen and pelvis after the uneventful administration of intravenous contrast. All CT scans use one or more of the following dose optimizing techniques: automated exposure control, MA and/or KvP adjustment based on patient size and exam type or iterative reconstruction. HISTORY: RLQ pain COMPARISON: None available. FINDINGS: Lung bases: The lung bases are clear. Solid organs: There is diffuse periportal edema. Liver is otherwise unremarkable. The portal vein is patent. The gallbladder is normal. There is no biliary ductal dilation. Pancreas is normal. There are multiple calcified granulomas within the spleen. Adrenal glands are normal. The kidneys are normal without hydronephrosis. Bowel: The stomach and small bowel are normal without obstruction. There is dilatation of a fluid-filled appendix measuring up to 0.8 cm with mild inflammatory stranding. Peritoneum: There is no intraperitoneal free fluid or free air. No suspicious lymphadenopathy. Vasculature: Normal without aneurysm. Musculoskeletal: No suspicious osseous lesion or compression fracture. Pelvis: The uterus and adnexa are normal. The urinary bladder is normal. IMPRESSION: 1. Findings suggestive of acute appendicitis without evidence of abscess or free air. 2. Mild periportal edema is nonspecific. Dictated by: Dictated on workstation # [id number] Dict: 06/11/211649 Trans: 06/11/211653 [facility] [id number] Interpreted by: COSME ALAS DO Electronically signed by: COSME ALAS DO 06/11/211653 Departure Impression Primary Impression: Acute appendicitis Qualified Codes: K35.30 - Acute appendicitis with localized peritonitis, without perforation or gangrene Disposition: ADMITTED INPATIENT Condition: Stable Admissions Decision to Admit Reason: Admit from ER (General) Decision to Admit/Date: Jun 11, 2021 Time/Decision to Admit Time: 17:30 Departure-Patient Inst. Referrals: NO,LOCAL PHYSICIAN (PCP/Family) Primary Care Physician BELEN DE SANTIAGO MD Jun 11, 2021 15:59
[2021-06-11 16:00] LABS: BILIRUBIN,TOTAL 0.7 MG/DL (0.1-1.0)
[2021-06-11 16:01] LABS: BILIRUBIN,URINE NEGATIVE (NEGATIVE); CLARITY,URINE CLEAR; COLOR,URINE YELLOW; GLUCOSE, URINE (UA) NEGATIVE (NEGATIVE); KETONES,URINE NEGATIVE (NEGATIVE); LEUKOCYTE ESTERASE ,URINE NEGATIVE (NEGATIVE); NITRITE,URINE NEGATIVE (NEGATIVE); PH,URINE 6.5 (5-9); PROTEIN,URINE NEGATIVE (NEGATIVE)
[2021-06-11 16:02] LABS: CREATININE SERUM 0.83 MG/DL (0.60-1.30)
[2021-06-11 16:05] LABS: BASOPHILS # (AUTO) 0.1 10^3/uL (0.0-0.1); BASOPHILS % (AUTO) 0 % (0-10); EOSINOPHILS # (AUTO) 0.1 10^3/uL (0.0-0.3); EOSINOPHILS % (AUTO) 0 % (0-10); HEMATOCRIT 39 % (35-52); HEMOGLOBIN 12.1 g/dL (11.5-16.0); LYMPHOCYTES # (AUTO) 1.4 10^3/uL (1.0-4.0); LYMPHOCYTES % (AUTO) 9 % (12-44); MEAN CORPUSCULAR HEMOGLOBIN 27 pg (25-34); MEAN CORPUSCULAR HGB CONC 31 g/dL (32-36); MEAN CORPUSCULAR VOLUME 85 fL (80-99); MEAN PLATELET VOLUME 10.3 fL (9.0-12.2); MONOCYTES # (AUTO) 1.1 10^3/uL (0.0-1.0); MONOCYTES % (AUTO) 7 % (0-12); NEUTROPHILS # (AUTO) 13.2 10^3/uL (1.8-7.8); NEUTROPHILS % (AUTO) 82 % (42-75); PLATELET COUNT 369 10^3/uL (130-400); WHITE BLOOD COUNT 16.1 10^3/uL (4.3-11.0)
[2021-06-11 16:10] LABS: BACTERIA,URINE TRACE /HPF; WBC,URINE RARE /HPF
[2021-06-11] MEDS ORDERED: IOHEXOL 350 MG/ML 100 ML (OMNIPAQUE 350) VIAL IV ONE (16:15)
[2021-06-11] MEDS ORDERED: HOLD METFORMIN - RECEIVED CONTRAST 20 ML VIAL IV SCH (16:15)
[2021-06-11] MEDS ORDERED: NS 100 ML (IVPB) BAG IV ONE (16:15)
[2021-06-11 16:24] LABS: BAND NEUTROPHILS 0 %; BASOPHILS % (MANUAL) 0 %; EOSINOPHILS % (MANUAL) 1 %; LYMPHOCYTES % (MANUAL) 12 %; MONOCYTES % (MANUAL) 4 %; NEUTROPHILS % (MANUAL) 83 %
[2021-06-11 16:25] LABS: RBC MORPH NORMAL
--- NOTE | 2021-06-11 16:55 | Diagnostic Imaging Report ---
EXAMINATION: CT abdomen and pelvis with intravenous contrast. TECHNIQUE: Multiple contiguous axial images were obtained through the abdomen and pelvis after the uneventful administration of intravenous contrast. All CT scans use one or more of the following dose optimizing techniques: automated exposure control, MA and/or KvP adjustment based on patient size and exam type or iterative reconstruction. HISTORY: RLQ pain COMPARISON: None available. FINDINGS: Lung bases: The lung bases are clear. Solid organs: There is diffuse periportal edema. Liver is otherwise unremarkable. The portal vein is patent. The gallbladder is normal. There is no biliary ductal dilation. Pancreas is normal. There are multiple calcified granulomas within the spleen. Adrenal glands are normal. The kidneys are normal without hydronephrosis. Bowel: The stomach and small bowel are normal without obstruction. There is dilatation of a fluid-filled appendix measuring up to 0.8 cm with mild inflammatory stranding. Peritoneum: There is no intraperitoneal free fluid or free air. No suspicious lymphadenopathy. Vasculature: Normal without aneurysm. Musculoskeletal: No suspicious osseous lesion or compression fracture. Pelvis: The uterus and adnexa are normal. The urinary bladder is normal. IMPRESSION: 1. Findings suggestive of acute appendicitis without evidence of abscess or free air. 2. Mild periportal edema is nonspecific. Dictated by: Dictated on workstation # [id number]
[2021-06-11] MEDS ORDERED: morphine INJ 4 MG/ML 1 ML (VIAL/SYRINGE) IVP ONE (17:15)
--- NOTE | 2021-06-11 17:43 | Consultation - Surgery ---
History of Present Illness History of Present Illness Patient Consulted On(sheri/time) 06/11/21 17:37 Time Seen by Provider: 17:12 History of Present Illness Surgery asked to consult regarding RLQ pain. HPI per ED: 20-year-old female otherwise healthy coming in due to right lower quadrant pain that started insidiously this morning when she woke up. Pain has been increasing, is now sharp in her right lower quadrant and stays there. Associated nausea but no vomiting. Ate something at noon which felt okay. Had a bowel movement this morning with no change. No fever that she knows of. She is never had pain like this before. LMP was 4 days ago. Nothing seems to make the pain better. She has never had abdominal surgery before. When I spoke to pt she rated pain at its worst as 8 out of 10, states then she got Morphine and went to CT it got better; but now is an 8 again. Allergies and Home Medications Allergies Coded Allergies: No Known Drug Allergies (Unverified , 08/18/19) Home Medications Cephalexin 500 Mg Capsule, 500 MG PO QID Prescribed by: SARA ESTES on 08/14/19103 Docusate Sodium 100 Mg Capsule, 100 MG PO BID PRN for CONSTIPATION-1ST LINE Prescribed by: POPPY THURSTON on 08/24/19813 Hydrocodone Bit/Acetaminophen 1 Tab Tab, 1 TAB PO Q4H PRN for PAIN-MODERATE Prescribed by: POPPY THURSTON on 08/24/19813 Ibuprofen 600 Mg Tablet, 600 MG PO Q6HR Prescribed by: POPPY THURSTON on 08/24/19813 Vit W-Ca,Fe,FA(<1 mg) 1 Each Tablet, 1 EACH PO DAILY, (Reported) [Benzocaine/Menthol] 56 ML AEROSOL, 56 ML TP UD PRN for PAIN- SEE INSTRUCTIONS EXTERNAL USE ONLY Prescribed by: POPPY THURSTON on 08/24/19813 Patient Home Medication List Home Medication List Reviewed: Yes Past Fqvpmhp-Jfnwax-Suasrw Hx Patient Social History Smoking Status: Current Everyday Smoker Former Smoker, Quit: Nov 14, 2018 Type Used: Electronic/Vapor 2nd Hand Smoke Exposure: No Recent Hopitalizations: No Alcohol Use?: No Have you traveled recently?: No Immunizations Up To Date Date of Influenza Vaccine: Aug 14, 2019 Seasonal Allergies Seasonal Allergies: No Surgeries History of Surgeries: Yes Respiratory History of Respiratory Disorde: No Cardiovascular History of Cardiac Disorders: No Neurological History of Neurological Disord: No Genitourinary History of Genitourinary Disor: No Gastrointestinal History of Gastrointestinal Di: No Musculoskeletal History of Musculoskeletal Dis: No Endocrine History of Endocrine Disorders: No HEENT History of HEENT Disorders: No Cancer History of Cancer: No Psychosocial History of Psychiatric Problem: No Integumentary History of Skin or Integumenta: No Blood Transfusions History of Blood Disorders: Yes (ANEMIA) Family Medical History Significant Family History: Other Conditions/Hx (Parents have anxiety and depression) Review of Systems-General Constitutional: No chills, No diaphoresis EENTM: No blurred vision, No double vision, No mouth pain, No mouth swelling, No epistaxis Respiratory: No cough, No dyspnea on exertion Cardiovascular: No chest pain, No edema, No palpitations Gastrointestinal: abdominal pain; No dysphagia, No hematemesis; nausea; No vomiting Genitourinary: No dysuria, No frequency, No hematuria Musculoskeletal: No back pain, No joint pain, No joint swelling, No muscle stiffness Skin: No change in color, No change in hair/nails Psychiatric/Neurological: Denies Anxiety, Denies Depressed, Denies Seizure, De nies Tremors Physical Exam-General Problems Physical Exam Vital Signs Vital Signs - First Documented 06/11/21 15:25 Temp 37.4 Pulse 88 Resp 18 B/P (MAP) 114/79 (91) Pulse Ox 100 O2 Delivery Room Air Capillary Refill : Less Than 3 Seconds General Appearance: WD/WN, mild distress Eyes: Bilateral Eye PERRL, Bilateral Eye EOMI HEENT: pharynx normal; No scleral icterus (R), No scleral icterus (L) Neck: non-tender, supple Respiratory: chest non-tender, lungs clear, normal breath sounds, no respiratory distress, no accessory muscle use Cardiovascular: regular rate, rhythm, no murmur Gastrointestinal: soft, no organomegaly, guarding (voluntary), tenderness (RLQ), other (+ Rosving's sign, pain with ) Back: no CVA tenderness, no vertebral tenderness Extremities: no pedal edema, no calf tenderness, normal capillary refill Neurologic/Psychiatric: tugboat engineer II-XII nml as tested, no motor/sensory deficits, alert, normal mood/affect, oriented x 3 Skin: normal color, warm/dry Lymphatic: no adenopathy (neck, axilla or groin) Data Review Labs Laboratory Tests 06/11/21 15:37: White Blood Count 16.1H, Red Blood Count 4.53, Hemoglobin 12.1, Hematocrit 39, Mean Corpuscular Volume 85, Mean Corpuscular Hemoglobin 27, Mean Corpuscular Hemoglobin Concent 31L, Red Cell Distribution Width 14.1, Platelet Count 369, Mean Platelet Volume 10.3, Immature Granulocyte % (Auto) 2, Neutrophils (%) (Auto) 82H, Lymphocytes (%) (Auto) 9L, Monocytes (%) (Auto) 7, Eosinophils (%) (Auto) 0, Basophils (%) (Auto) 0, Neutrophils # (Auto) 13.2H, Lymphocytes # (Auto) 1.4, Monocytes # (Auto) 1.1H, Eosinophils # (Auto) 0.1, Basophils # (Auto) 0.1, Immature Granulocyte # (Auto) 0.3H, Neutrophils % (Manual) 83, Lymphocytes % (Manual) 12, Monocytes % (Manual) 4, Eosinophils % (Manual) 1, Basophils % (Manual) 0, Band Neutrophils 0, Blood Morphology Comment NORMAL, Sodium Level 143, Potassium Level 3.7, Chloride Level 107, Carbon Dioxide Level 25, Anion Gap 11, Blood Urea Nitrogen 10, Creatinine 0.83, Estimat Glomerular Filtration Rate 87, BUN/Creatinine Ratio 12, Glucose Level 84, Calcium Level 9.3, Corrected Calcium 8.9, Total Bilirubin 0.7, Aspartate Amino Transf (AST/SGOT) 24, Alanine Aminotransferase (ALT/SGPT) 22, Alkaline Phosphatase 48, Total Protein 7.7, Albumin 4.5, Lipase 16 06/11/21 15:54: Urine Color YELLOW, Urine Clarity CLEAR, Urine pH 6.5, Urine Specific [place] 1.020, Urine Protein NEGATIVE, Urine Glucose (UA) NEGATIVE, Urine Ketones NEGATIVE, Urine Nitrite NEGATIVE, Urine Bilirubin NEGATIVE, Urine Urobilinogen 1.0, Urine Leukocyte Esterase NEGATIVE, Urine RBC (Auto) NEGATIVE, Urine RBC NONE, Urine WBC RARE, Urine Squamous Epithelial Cells 2-5, Urine Crystals NONE, Urine Bacteria TRACE, Urine Casts NONE, Urine Mucus SMALLH, Urine Culture Indicated NO Radiology Date of Exam:06/11/21 CT ABD/PELV W (APPENDICITIS) EXAMINATION: CT abdomen and pelvis with intravenous contrast. TECHNIQUE: Multiple contiguous axial images were obtained through the abdomen and pelvis after the uneventful administration of intravenous contrast. All CT scans use one or more of the following dose optimizing techniques: automated exposure control, MA and/or KvP adjustment based on patient size and exam type or iterative reconstruction. HISTORY: RLQ pain COMPARISON: None available. FINDINGS: Lung bases: The lung bases are clear. Solid organs: There is diffuse periportal edema. Liver is otherwise unremarkable. The portal vein is patent. The gallbladder is normal. There is no biliary ductal dilation. Pancreas is normal. There are multiple calcified granulomas within the spleen. Adrenal glands are normal. The kidneys are normal without hydronephrosis. Bowel: The stomach and small bowel are normal without obstruction. There is dilatation of a fluid-filled appendix measuring up to 0.8 cm with mild inflammatory stranding. Peritoneum: There is no intraperitoneal free fluid or free air. No suspicious lymphadenopathy. Vasculature: Normal without aneurysm. Musculoskeletal: No suspicious osseous lesion or compression fracture. Pelvis: The uterus and adnexa are normal. The urinary bladder is normal. IMPRESSION: 1. Findings suggestive of acute appendicitis without evidence of abscess or free air. 2. Mild periportal edema is nonspecific. Dictated by: Dictated on workstation # [id number] Dict: 06/11/211649 Trans: 06/11/211653 [facility] [id number] Interpreted by: COSME ALAS DO Electronically signed by: COSME ALAS DO 06/11/21 1654 Assessment/Plan Assessment/Plan Assessment/Plan Acute appendicitis Plan is NPO, IV fluids, pain control, anti-emetics as needed and to the OR for Laparoscopic Appendectomy possible open. IV ABX process consultant to OR. I personally reviewed the CT and had a hard time finding the appendix, but thought I saw an enlarged one. I discussed the risks and complications of surgery with pt; not limited to pain, bleeding, infection, scar, damage to bowel and need for further procedure. All questions answered to her satisfaction. Will get consent. NATALY SHIRLEY DO Jun 11, 2021 17:43
[2021-06-11] MEDS ORDERED: LIDOCAINE/EPI 1%-1:100,000 (XYLOCAINE) 20ML ONE (17:44)
[2021-06-11] MEDS ORDERED: fentaNYL INJ 100 MCG/2 ML AMP ONE (17:46)
[2021-06-11] MEDS ORDERED: MIDAZOLAM 2 MG/2 ML (VERSED) VIAL ONE (17:46)
[2021-06-11] MEDS ORDERED: SUCCINYLCHOLINE INJ 100 MG/5 ML SYR/VIAL ONE (17:46)
[2021-06-11] MEDS ORDERED: ONDANSETRON 4 MG/2 ML (SDV) Z0FRAN ONE (17:46)
[2021-06-11] MEDS ORDERED: proPOfol 200 MG/20 ML (DIPRIVAN) VIAL IV ONE (17:46)
[2021-06-11] MEDS ORDERED: LIDOCAINE PF 2% 5 ML (XYLOCAINE) VIAL ONE (17:46)
[2021-06-11] MEDS ORDERED: ROCURONIUM 10 MG/ML 5 ML SYRINGE IV ONE (17:46)
[2021-06-11] MEDS ORDERED: ACHD5005 PO (17:51)
[2021-06-11] MEDS ORDERED: ceFAZolin 2 GM IV Premixed 50 ML ONE (17:52)
[2021-06-11] MEDS ORDERED: LACTATED RINGERS 1,000 ML IV PRN (18:45)
[2021-06-11] MEDS ORDERED: NEOSTIGMINE 3 MG/3 ML VIAL ONE (18:49)
[2021-06-11] MEDS ORDERED: GLYCOPYRROLATE 0.2 MG/ML (ROBINUL) 2 ML VIAL ONE (18:49)
--- NOTE | 2021-06-11 19:02 | Progress Note-Post Operative ---
Post-Operative Progess Note Surgeon (s)/Reconnaissance Crewmember (s) Surgeon NATALY SHIRLEY DO Reconnaissance Crewmember: Campbell Dolan MSIII Pre-Operative Diagnosis Acute appy Post-Operative Diagnosis same Procedure & Operative Findings Date of Procedure 06/11/21 Procedure Performed/Findings PROCEDURE: Laparoscopic appendectomy. COMPLICATIONS: None. INDICATIONS: The patient is a 20 year old female who has been having right lower quadrant abdominal pain. Patient's exam consistent with appendicitis. I discussed risk and benefits of laparoscopic appendectomy and all indicated procedures with the possibility being a normal appendix. The patient understands the risks and benefits and wishes to proceed. Consent was signed on the chart. DESCRIPTION OF PROCEDURE: The patient was taken to the operating suite, prepped and draped in a sterile fashion. Timeout was performed. Local anesthetic was infiltrated just above the umbilicus and 11-blade scalpel was used to make a skin incision. Cautery was used to dissect down to the fascia and scored. Kochers were used to grasp and elevate it and the abdomen was then entered. A 0 Vicryl was placed in a [id number] fashion for closure at the end of the case. The balloon trocar was inserted into the abdomen and pneumoperitoneum was achieved. Under direct visualization of the laparoscope, a 5 mm trocar was placed in the suprapubic region and a 5 mm trocar was placed in the left lower quadrant. Appendix was located, dilated with fibrinous material and mildly erythematous. Using the Ligasure and coming across the mesoappendix, ligating appendiceal artery to get to the base. Once at the base an Endo-BIMAL 2.5 stapler was then fired across the base of the appendix. It was then placed in an Endobag and removed through the 12 mm trocar site. The abdomen was then irrigated and suctioned. No other pathology noted. The abdomen was then desufflated and the trocars were removed. The 0 Vicryl placed at the beginning of the case was then tied closing the 12 mm fascial defect. The skin was then closed using 4-0 Monocryl in a subcuticular fashion. The abdomen was then washed and dried and Skin Affix was placed over the incisions. The patient tolerated the procedure well without any complications and was taken to the recovery room in stable condition. Anesthesia Type GET Estimated Blood Loss Estimated blood loss (mL): scant Specimens/Packing Specimens Removed NATALY Gibson DO Jun 11, 2021 19:02
--- NOTE | 2021-06-11 19:03 | Discharge Inst-Surgical ---
Discharge Inst-Surgical Depart Medication/Instructions New, Converted or Re-Newed RX: Transmitted to Pharmacy Patient Instructions Follow up Appt: Make appointment for 1 week. [phone] Instructions: No lifting greater than 20-30 pounds. No strenuous activity. May shower in 24 hours, no tub bath or soaking. Use incentive spirometer at home as directed. No Smoking Skin/Wound Care: May remove bandages in am. You need to leave the Dermabond on incision it will fall off on it's own. Symptoms to Report: Appetite Changes, Extremity Discoloration, Numbness/Tingling, Swelling Increased, Bleeding Excessive, Eyesight Changes, Pain Increased, Urine Color Change, Constipation(Persistent), Fever over 101 degree F, Pain/Pressure in chest, Urinating Difficulty, Cough Up/Vomit Blood, Heart Beat Irreg/Pounding, Pain/Pressure in jaw, Cramps in feet or legs, Lightheadedness, Pain/Pressure in shoulder, Diarrhea(Persistent), Memory Changes Suddenly, Questions/Concerns, Weight gain consecutive days, Dizziness/Fainting, Nausea/Vomiting, Shortness of Breath, Weight gain over 2 pounds If questions or concerns contact your physician Or seek help at emergency department. Activity Activity as Tolerated: Yes Activity Instructions: Avoid Stress to Incision Driving Instructions: No Driving/Refer to (until can drive normally and not taking Narcotic) Diet Discharge Diet: No Restrictions Diet After 24 Hours: Clear Liquid if Nauseous If Any Problems/Questions/Issu: Contact Your Physician, Go to Emergency Room Skin/Wound Care Infection Signs and Symptoms: Increased Redness, Foul Odor of Wound, Increased Drainage, Skin Itchy or Has a Rash, Increased Swelling, Temperature Above 101 F Wound Care Comment: heating pad to shoulder or neck tonight for pain Bathing Instructions: Shower Stitches/[place]/Dermabond Dis: Dermabond Ice Pack: Ice On and Off Site (as needed for pain at incisions) NATALY SHIRLEY DO Jun 11, 2021 19:03
[2021-06-11] MEDS ORDERED: SEVOFLURANE (ULTANE) 15 ML INHAL SOLN ONE ×2 (19:04→19:05)
[2021-06-11 19:09] VITALS: BP 105/80
[2021-06-11] MEDS ORDERED: HYDROmorphone 2 MG/ML VIAL (DILAUDID) IV ONE (19:15)
[2021-06-11] MEDS ORDERED: MEPERIDINE (DEMEROL) INJ 50 MG/ML IVP ONE (19:15)
[2021-06-11] MEDS ORDERED: ONDANSETRON 4 MG/2 ML (SDV) Z0FRAN IVP PRN (19:15)
[2021-06-11] MEDS ORDERED: PROMETHAZINE INJ 25 MG/ML (PHENERGAN) AMP IVP ONE (19:15)
[2021-06-11 19:20] VITALS: BP 100/53
--- NOTE | 2021-06-11 19:23 | Anesthesia-General Post-Op ---
General Patient Condition Mental Status/LOC: Same as Preop Cardiovascular: Satisfactory Nausea/Vomiting: Absent Respiratory: Satisfactory Pain: Controlled Complications: Absent Post Op Complications Complications None Follow Up Care/Instructions Patient Instructions None needed. Anesthesia/Patient Condition Patient Condition Patient is doing well, no complaints, stable vital signs, no apparent adverse anesthesia problems. No complications reported per nursing. LESVIA STEEL CRNA Jun 11, 2021 19:23
[2021-06-11 19:30] VITALS: BP 102/63
[2021-06-11 19:40] VITALS: BP 104/66
[2021-06-11 19:45] VITALS: BP 114/76
[2021-06-11 21:42] VITALS: BP 110/70
== END 2021-06-11 22:35 | disposition home or self-care (01) ==
LOC: EDUNIT# 15:07 → ER 15:09 → SDC 17:30 → 4TH 22:34 → ER 22:35
PROVIDERS: ATTEND Surgery
DX: K35.80 Unspecified acute appendicitis (principal); F17.290 Nicotine dependence, other tobacco product, uncomplicated; Z79.891 Long term (current) use of opiate analgesic; Z79.899 Other long term (current) drug therapy
CPT/HCPCS: 36415; 74177; 80053; 81000; 83690; 84703; 85007; 85027; 88304; 96374; 96375

== ENCOUNTER 2021-10-12 03:27 | Emergency (ER) | payer SELFPAY ==
[2021-10-12] MEDS ORDERED: AMOXICILLIN 500 MG (POLYMOX) CAP PO STA (04:57)
[2021-10-12] MEDS ORDERED: FLUT9.9S NSEACH (05:12)
[2021-10-12] MEDS ORDERED: AMOX500C2 PO (05:12)
--- NOTE | 2021-10-12 05:12 | ED General ---
General Chief Complaint: Cough/Cold/Flu Symptoms Stated Complaint: CONGESTION,SINUS & EAR PAIN Nursing Triage Note: TO ED VIA POV AND AMBULATORY TO ROOM 8 WITH C/O LEFT EAR PAIN, NASAL CONGESTION, COUGH. HAS TRIED MUCINEX. STATES POSITIVE FOR COVID 19 ABOUT A MONTH AGO. Source of Information: Patient Exam Limitations: No Limitations History of Present Illness Date Seen by Provider: Oct 12, 2021 Time Seen by Provider: 04:18 Initial Comments This 21-year-old young lady presents to the emergency room with concerns about sinus congestion, postnasal drip, and left ear ache. She was diagnosed with asymptomatic COVID-19 about a month ago. She was tested when her son had Covid. About 2 weeks ago she developed congestion, cough, postnasal drainage, facial pain, and left ear pain. She is afebrile. Allergies and Home Medications Allergies Coded Allergies: No Known Drug Allergies (Unverified , 08/18/19) Patient Home Medication List Home Medication List Reviewed: Yes Amoxicillin (Amoxicillin) 500 Mg Capsule, 1,000 MG PO BID Prescribed by: ERLIN IBANEZ on 10/12/21 0512 Docusate Sodium (Docusate Sodium) 100 Mg Capsule, 100 MG PO BID PRN for CONSTIPATION-1ST LINE Prescribed by: POPPY THURSTON on 08/24/19 08 Fluticasone Propionate (Flonase Allergy Relief) 9.9 Ml Brandt.susp, 2 SPRAY NSEACH BID Prescribed by: ERLIN IBANEZ on 10/12/21 0512 Hydrocodone Bit/Acetaminophen (HYDROcodone/APAP 5 MG/325 MG TAB) 1 Tab Tab, 1 TAB PO Q8H PRN for PAIN-MODERATE (5-7) Prescribed by: NATALY SHIRLEY on 06/11/21 1752 Ibuprofen (Ibu) 600 Mg Tablet, 600 MG PO Q6HR Prescribed by: POPPY THURSTON on 08/24/19 0814 Vit W-Ca,Fe,FA(<1 mg) ( Vitamins) 1 Each Tablet, 1 EACH PO DAILY, (Reported) Entered as Reported by: LYLY HUITRON on 08/18/19 1244 [Benzocaine/Menthol] 56 ML AEROSOL, 56 ML TP UD PRN for PAIN- SEE INSTRUCTIONS Prescribed by: POPPY THURSTON on 08/24/19 0814 Review of Systems Review of Systems Constitutional: no symptoms reported EENTM: see HPI Respiratory: see HPI Cardiovascular: no symptoms reported Gastrointestinal: no symptoms reported Genitourinary: no symptoms reported Musculoskeletal: no symptoms reported Skin: no symptoms reported Psychiatric/Neurological: No Symptoms Reported Hematologic/Lymphatic: No Symptoms Reported Immunological/Allergic: no symptoms reported Past Dtxoedr-[id number]-Mocmkm Hx Patient Social History Tobacco Use?: Yes Smoking Status: Current Everyday Smoker Substance use?: No Alcohol Use?: No Immunizations Up To Date First/Initial COVID19 Vaccinat: STATES FIRST SHOT SEVERAL MONTHS AGO, THEN GOT COVID, NO SECOND SHOT YET Seasonal Allergies Seasonal Allergies: No Past Medical History Surgeries: Yes Appendectomy Respiratory: No Currently Using CPAP: No Currently Using BIPAP: No Cardiac: No Neurological: No : No Reproductive Disorders: No Genitourinary: No Gastrointestinal: No Musculoskeletal: No Endocrine: No HEENT: No Cancer: No Psychosocial: No Integumentary: No Blood Disorders: Yes (ANEMIA) Family Medical History Patient reports no known family medical history. Other Conditions/Hx Physical Exam Vital Signs Vital Signs - First Documented 10/12/21 03:57 Temp 37.0 Pulse 90 Resp 18 B/P (MAP) 145/92 (109) Pulse Ox 100 O2 Delivery Room Air Capillary Refill : Less Than 3 Seconds Height, Weight, BMI Height: '" Weight: lbs. oz. kg; 24.00 BMI Method: General Appearance: No Apparent Distress, WD/WN, Thin HEENT: PERRL/EOMI, Normal ENT Inspection, Pharynx Normal, Pharyngeal Erythema, TM Abnormal (L) (Erythema and purulent effusion. Excoriation of the posterior canal); No TM Abnormal (R); Other (facial TTP) Neck: Normal Inspection Respiratory: Lungs Clear, Normal Breath Sounds, No Accessory Muscle Use, No Respiratory Distress Cardiovascular: Regular Rate, Rhythm, No Edema, No Murmur Gastrointestinal: Non Tender, Soft Extremity: Normal Inspection, No Pedal Edema Neurologic/Psychiatric: Alert, Oriented x3, No Motor/Sensory Deficits, Normal Mood/Affect, vat overhauler II-XII Norm as Tested Skin: Normal Color, Warm/Dry Progress/Results/Core Measures Suspected Sepsis SIRS Temperature: Pulse: 90 Respiratory Rate: 18 Blood Pressure 145 /92 Mean: 109 Results/Orders Lab Results Laboratory Tests Test 10/12/21 04:05 Range/Units Influenza Type A (RT-PCR) Not Detected Not Detecte Influenza Type B (RT-PCR) Not Detected Not Detecte SARS-CoV-2 RNA (RT-PCR) Not Detected Not Detecte Group A Streptococcus Screen NEGATIVE NEGATIVE My Orders Orders - ERLIN CONDE MD Influenza A And B By Pcr (10/12/21 04:18) Rapid Strep A Screen (10/12/21 04:18) Covid 19 Inhouse Test (10/12/21 04:18) Amoxicillin Capsule (Polymox Capsule) (10/12/21 04:57) Vital Signs/I&O 10/12/21 10/12/21 03:57 05:16 Temp 37.0 37.0 Pulse 90 84 Resp 18 16 B/P (MAP) 145/92 (109) 136/89 Pulse Ox 100 100 O2 Delivery Room Air Room Air Capillary Refill : Less Than 3 Seconds Blood Pressure Mean: 109 Progress Note : Progress Note First dose of amoxicillin given in the ER. Departure Impression Primary Impression: Acute sinusitis Qualified Codes: J01.90 - Acute sinusitis, unspecified Additional Impressions: Left otitis media Qualified Codes: H66.002 - Acute suppurative otitis media without spontaneous rupture of ear drum, left ear Trauma of ear canal Qualified Codes: S09.91XA - Unspecified injury of ear, initial encounter Disposition: 01 HOME, SELF-CARE Condition: Stable Departure-Patient Inst. Decision time for Depature: 05:09 Referrals: NO,LOCAL PHYSICIAN (PCP/Family) Primary Care Physician Patient Instructions: Ear Infection ED, Sinusitis, Adult (DC) Add. Discharge Instructions: Complete at least 10 days of antibiotic. Take a second round if symptoms are not completely resolved after 10 days. Use Flonase 2 sprays in each nostril twice daily while on antibiotics. You may use ibuprofen and/or Tylenol for pain. Return to care if you have worsening symptoms. Call with questions or concerns. All discharge instructions reviewed with patient and/or family. Voiced un derstanding. Scripts Fluticasone Propionate (Flonase Allergy Relief) 9.9 Ml Brandt.susp 2 SPRAY NSEACH BID, #1 EACH Prov: ERLIN CONDE MD 10/12/21 Amoxicillin (Amoxicillin) 500 Mg Capsule 1000 MG PO BID, #40 CAP 1 Refill Prov: ERLIN CONDE MD 10/12/21 ERLIN CONDE MD Oct 12, 2021 05:12
[2021-10-12 05:16] VITALS: BP 136/89
== END 2021-10-12 05:16 | disposition home or self-care (01) ==
LOC: EDUNIT# 03:27 → ER 03:32
DX: S09.91XA Unspecified injury of ear, initial encounter (principal); J01.90 Acute sinusitis, unspecified; H66.92 Otitis media, unspecified, left ear; F17.290 Nicotine dependence, other tobacco product, uncomplicated; Z20.822 Contact with and (suspected) exposure to COVID-19; X58.XXXA Exposure to other specified factors, initial encounter
CPT/HCPCS: 87430; 87636